=== PATIENT | male | born 1950 | race Native Hawaiian/Other Pacific Islander ===

== ENCOUNTER 2016-11-17 08:02 | Outpatient (CLI) | payer BC ==
[2016-11-17 08:39] LABS: PLATELET COUNT 306 K/uL (142-355)
[2016-11-17 09:08] LABS: POTASSIUM 4.2 mmol/L (3.6-5.2); SODIUM 133 mmol/L (136-145)
== END 2016-11-17 19:11 | disposition home or self-care (01) ==
LOC: LABW 08:02
PROVIDERS: Internal Medicine
DX: E11.9 Type 2 diabetes mellitus without complications (principal); Z12.5 Encounter for screening for malignant neoplasm of prostate
CPT/HCPCS: 36415; 80053; 80061; 81000; 83036; 84154; 84443; 85027